=== PATIENT | male | born 1985 | race Caucasian/White ===

== ENCOUNTER 2023-10-19 11:06 | Emergency (ER) | payer MEDICAID ==
[2023-10-19] MEDS: Fluorescein 1 MG Ophth Strip EYERT ONE (11:29)
== END 2023-10-19 11:42 | disposition home or self-care (01) ==
LOC: DL.ED 11:06
DX: S05.01XA Injury of conjunctiva and corneal abrasion without foreign body, right eye, initial encounter (principal); W45.8XXA Other foreign body or object entering through skin, initial encounter
CPT/HCPCS: 99283